=== PATIENT | male | born 1965 | race Caucasian/White ===

== ENCOUNTER 2017-08-04 06:24 | Emergency (ER) | payer OTHER ==
[2017-08-04 06:29] VITALS: RESP 16; TEMP 98.2
--- NOTE | 2017-08-04 06:38 | EDPHY ---
H & P Stated Complaint: left ankle pain HPI/ROS: HPI CHIEF COMPLAINT: Left ankle pain HISTORY OF PRESENT ILLNESS: This 52-year-old male, otherwise healthy significant medical history does not take any medications, he is emergency left ankle pain and swelling. Patient states he was taking the trash last night slipped and fell on ice and landed on his left ankle he since then has had pain and went to the left ankle. He is able to bear weight. He did arrive by private vehicle and already has crutches. He is concerned there may be a fracture as opposed to a sprain. Past Medical History: Denies medical history Past Surgical History: Denies surgical history Social History: Denies drugs alcohol tobacco Family History:. Noncontributory ROS REVIEW OF SYSTEMS: A comprehensive 10 point review of systems is otherwise negative aside from elements mentioned in the history of present illness. Exam Constitutional triage nursing summary reviewed, vital signs reviewed, awake/ alert. Eyes normal conjunctivae and sclera, EOMI, PERRLA. HENT normal inspection, atraumatic, moist mucus membranes, no epistaxis, neck supple/ no meningismus, no raccoon eyes. Respiratory clear to auscultation bilaterally, normal breath sounds, no respiratory distress, no wheezing. Cardiovascular rate normal, regular rhythm, no murmur, no edema, distal pulses normal. Gastrointestinal soft, non-tender, no rebound, no guarding, normal bowel sounds, no distension, no pulsatile mass. Genitourinary no CVA tenderness. Musculoskeletal LLE: This is neurovascularly intact. Good distal pulse. Good cap refill. There is swelling and tenderness over by malleoli region. Good distal pulse and sensation intact full range of motion. No compartment syndrome. Denies knee pain or upper leg pain. no midline vertebral tenderness , full range of motion, no calf swelling, no tenderness of extremities, no meningismus, good pulses, neurovascularly intact. Skin pink, warm, & dry, no rash, skin atraumatic. Neurologic awake, alert and oriented x 3, AAOx3, moves all 4 extremities equally, motor intact, sensory intact, CN II-XII intact, normal cerebellar, normal vision, normal speech. Psychiatric normal mood/affect. Heme/Lymph/Immune no lymphadenopathy. Differential Diagnosis: Includes but is not limited to in a particular order comfortable sprain, ankle contusion, soft tissue injury, ankle fracture Medical Decision Making: Plan for this patient x-ray left ankle rule out fracture. Then patient most likely benefit from walking boot, here he has crutches. Will make sure the appropriate size. Ibuprofen for pain control. Recommend ice. Elevation. Rest. Bear weight as tolerated. If He continues to have pain recommend follow up with Orthopedics. Re-evaluation: Patient x-ray reviewed. Possible avulsion fracture versus ankle sprain. Patient placed in a walking boot. Orthopedic follow-up. Most likely ankle sprain. Patient be placed in a walking boot and crutches. Recommend ice, anti-inflammatory pain medicine. Orthopedic follow-up. Return precautions discussed with the patient. Source: Patient - Personal History Current Tetanus/Diphtheria Vaccine: No Current Tetanus Diphtheria and Acellular Pertussis (TDAP): No - Medical/Surgical History Hx Asthma: No Hx Chronic Respiratory Disease: No Hx Diabetes: No Hx Cardiac Disease: No Hx Renal Disease: No Hx Cirrhosis: No Hx Alcoholism: No Hx HIV/AIDS: No Hx Splenectomy or Spleen Trauma: No Other PMH: knee surgery - Social History Smoking Status: Never smoked Constitutional: Initial Vital Signs Temperature (C) 36.8 C 08/04/17 06:26 Heart Rate 100 08/04/17 06:26 Respiratory Rate 16 08/04/17 06:26 Blood Pressure 136/94 H 08/04/17 06:26 O2 Sat (%) 94 08/04/17 06:26 O2 Delivery Mode Room Air Allergies/Adverse Reactions: No Known Allergies Allergy (Verified 08/04/17 06:29) Home Medications: Medication Instructions Recorded NK [No Known Home Meds] 08/04/17 Departure - Departure Disposition: Home, Routine, Self-Care Clinical Impression: Ankle sprain Qualifiers: Encounter type: initial encounter Involved ligament of ankle: unspecified ligament Laterality: left Qualified Code(s): S93.402A - Sprain of unspecified ligament of left ankle, initial encounter Condition: Good Instructions: Ankle Sprain (ED) Additional Instructions: 1. Ice your ankle 2. Tylenol or Motrin for pain control. 3. Walking boot as tolerated. 4. If you continue have severe pain or it is not getting better follow up with Orthopedics. Referrals: NONE *PRIMARY CARE P,. [Primary Care Provider] - As per Instructions Kenneth Jones MD [Medical Doctor] - As per Instructions Stand Alone Forms: Statement of Treatment
[2017-08-04 07:34] VITALS: BP 136/108; PULSE 92; O2SAT 92
== END 2017-08-04 07:43 | disposition home or self-care (01) ==
DX: S93.402A Sprain of unspecified ligament of left ankle, initial encounter (principal); W00.2XXA Other fall from one level to another due to ice and snow, initial encounter
CPT/HCPCS: L4386